=== PATIENT | female | born 1965 | race American Indian/Alaskan Native ===

== ENCOUNTER 2020-02-17 03:28 | Emergency (ER) | payer OTHER ==
--- NOTE | 2020-02-17 03:55 | Emergency Department Report ---
<NATASHA TODD - Last Filed: 02/17/20 05:48> ED Seizure HPI - General Chief Complaint: Hypoglycemia Stated Complaint: hypoglycemia Time Seen by Provider: 02/17/20 03:40 Source: EMS Mode of arrival: Stretcher Limitations: Other - History of Present Illness Initial Comments: Patient is a 54-year-old F [place] female with past medical history of colon cancer who is on chemotherapy as well as diabetes and hypertension who is pre senting status post a hypoglycemic episode. Family via phone state that the patient was fine earlier today and did go to chemotherapy. Patient was found by lying on the ground poorly responsive family also cannot tell me how long the patient was hypoglycemic. - Related Data Previous Rx's Medication Instructions Recorded Last Taken Type Hydrocodone Bit/Acetaminophen 1 - 2 each PO Q4-6H PRN #20 tablet 09/15/13 Unknown Rx [Lortab 5-500 Tablet] Ibuprofen [Motrin 800 MG tab] 800 mg PO TID PRN #20 tablet 09/15/13 Unknown Rx amLODIPine 10 mg PO DAILY #30 tab 02/17/20 Unknown Rx Allergies Allergy/AdvReac Type Severity Reaction Status Date / Time No Known Allergies Allergy Unverified 09/15/13 09:05 ED Review of Systems Comment: Unobtainable due to pts medical conditions ED Past Medical Hx - Past Medical History Hx Hypertension: Yes Hx Diabetes: Yes - Surgical History Additional Surgical History: Bilateral tubal ligation - Social History Smoking Status: Never Smoker Substance Use Type: None - Medications Home Medications: Home Medications Medication Instructions Recorded Confirmed Last Taken Type Hydrocodone Bit/Acetaminophen 1 - 2 each PO Q4-6H PRN #20 tablet 09/15/13 Unknown Rx [Lortab 5-500 Tablet] Ibuprofen [Motrin 800 MG tab] 800 mg PO TID PRN #20 tablet 09/15/13 Unknown Rx amLODIPine 10 mg PO DAILY #30 tab 02/17/20 Unknown Rx ED Physical Exam - General Limitations: Other General appearance: alert, in no apparent distress, other (Patient lying on her side resting. When I attempted to roll the patient over she stared at me with a angry expression but would not speak. Patient also noted to kick in strike out at nursing staff.) - Head Head exam: Present: atraumatic, normocephalic - Eye Eye exam: Present: normal appearance - ENT ENT exam: Present: mucous membranes moist - Neck Neck exam: Present: normal inspection - Respiratory Respiratory exam: Present: normal lung sounds bilaterally. Absent: respiratory distress, wheezes, rales - Cardiovascular Cardiovascular Exam: Present: regular rate, normal rhythm, normal heart sounds. Absent: systolic murmur, diastolic murmur, rubs, gallop - GI/Abdominal GI/Abdominal exam: Present: soft, tenderness, normal bowel sounds. Absent: distended - Extremities Exam Extremities exam: Present: normal inspection - Back Exam Back exam: Present: normal inspection - Neurological Exam Neurological exam: Present: alert, altered - Psychiatric Psychiatric exam: Present: normal affect, normal mood - Skin Skin exam: Present: warm, dry, intact, normal color. Absent: rash ED Course - Reevaluation(s) Reevaluation #1: 02/17/20 05:49 Patient is continued to be combative with nursing staff. Patient be given Geodon so that we can collect laboratory studies and properly evaluate her ED Disposition Clinical Impression: UTI (urinary tract infection), Hypoglycemia, Hypothermia, Colon cancer, Status post chemotherapy Disposition: - OP ADMIT IP TO THIS HOSP Condition: Stable Prescriptions: amLODIPine 10 mg PO DAILY #30 tab Referrals: PRIMARY CARE, [Primary Care Provider] - 3-5 Days <BARRINGTON MONTEIRO - Last Filed: 02/18/20 07:21> ED Seizure HPI - History of Present Illness Initial Comments: Patient states she takes Lantus 40 units at bedtime and then takes a short acting insulin with meals based on sliding scale dosing. Last dose of Lantus was 40 units at bedtime. Patient states she ate appropriate last night. Patient did not oversleep but was found hypoglycemic and this morning. Patient currently complains of mild frontal headache and otherwise is back to normal mental status alert and oriented x3 without complaints ED Review of Systems ROS: Stated complaint: hypoglycemia Other details as noted in HPI ED Course Vital Signs 02/17/20 02/17/20 02/17/20 03:38 03:43 03:46 Temperature 98.0 F Pulse Rate 76 73 70 Respiratory 14 11 L Rate Blood Pressure 157/82 Blood Pressure 157/82 [Right] O2 Sat by Pulse 99 100 100 Oximetry 02/17/20 02/17/20 02/17/20 03:56 04:00 05:43 Temperature 98 F Pulse Rate 73 73 88 Respiratory 14 12 12 Rate Blood Pressure 157/82 157/82 157/82 Blood Pressure [Right] O2 Sat by Pulse 100 100 100 Oximetry 02/17/20 02/17/20 02/17/20 05:46 06:00 07:00 Temperature Pulse Rate 84 79 70 Respiratory 13 20 8 L Rate Blood Pressure 151/85 151/85 178/103 Blood Pressure [Right] O2 Sat by Pulse 99 100 99 Oximetry 02/17/20 02/17/20 02/17/20 08:00 09:00 09:30 Temperature 92.1 F L Pulse Rate 76 Respiratory 11 L Rate Blood Pressure 163/84 180/95 Blood Pressure [Right] O2 Sat by Pulse 100 100 Oximetry 02/17/20 02/17/20 02/17/20 09:32 10:00 11:00 Temperature 92.1 F L Pulse Rate 91 H 92 H Respiratory 14 13 Rate Blood Pressure 179/72 173/93 Blood Pressure [Right] O2 Sat by Pulse 99 100 Oximetry 02/17/20 02/17/20 02/17/20 12:00 13:00 14:00 Temperature Pulse Rate 97 H 85 87 Respiratory 12 14 11 L Rate Blood Pressure 163/90 196/94 196/94 Blood Pressure [Right] O2 Sat by Pulse 100 100 100 Oximetry 02/17/20 02/17/20 02/17/20 15:00 15:57 17:18 Temperature 98.2 F Pulse Rate 83 91 H Respiratory 16 Rate Blood Pressure 173/94 184/89 Blood Pressure [Right] O2 Sat by Pulse 100 Oximetry 02/17/20 18:20 Temperature Pulse Rate 87 Respiratory 30 H Rate Blood Pressure Blood Pressure 164/87 [Right] O2 Sat by Pulse 98 Oximetry - Reevaluation(s) Reevaluation #1: 02/17/20 08:15 pt alert at this time nurse reports oral temp of 90F (rectal temp requested) IVF ordered due to elevated bun/cr however baseline cri noted as per med record awaiting urine collection ED Medical Decision Making - Lab Data Result diagrams: 02/17/20 05:35 02/17/20 05:35 - Medical Decision Making Patient with episode of hypoglycemia and unresponsiveness this a.m. Then patient developed agitation and combativeness and required Geodon. At time of my reevaluate patient was at baseline mental status confirmed by daughter at the bedside. Urine appears to be infected. Rocephin ordered. Blood cultures, lactic acid, venous pH ordered to rule out sepsis although no signs of tachycardia, hypotension, or leukocytosis at this time. Active warming initiated in ED. Patient is a cancer patient with recent chemotherapy. hospitalist informed for admission pt was evaluated by and ultimately discharged by the hospitalist Dr Franklin. Critical care attestation.: If time is entered above; I have spent that time in minutes in the direct care of this critically ill patient, excluding procedure time. ED Disposition Is pt being admited?: Yes Time of Disposition: 11:27 (Dr Franklin/hosp)
--- NOTE | 2020-02-17 04:36 | Cat Scan Report ---
CT head/brain wo con INDICATION: altered mental state. TECHNIQUE: All CT scans at this location are performed using the following dose modulation technique: Automated exposure control. CONTRAST: None. COMPARISON: None available. FINDINGS: The ventricular system is appropriate in size and configuration without midline shift. Nega tive for mass, stroke or hemorrhage. Imaged portions of the paranasal sinuses are clear. IMPRESSION: Negative for intracranial cyst hemorrhage or stroke. Signer Name: Edgardo Khan MD Signed: 02/17/2020 4:31 AM Workstation Name: [id number]
[2020-02-17] MEDS ORDERED: ZIPRASIDONE MESYLATE 20 MG VIAL IM ONE (04:37)
[2020-02-17] MEDS ORDERED: WATER FOR INJ Sterile (PF) 10 ML ONE (05:14)
[2020-02-17 06:45] LABS: Basophils # (Auto) 0.1 K/mm3 (0.0-0.1); Basophils % (Auto) 0.8 % (0.0-1.8); Eosinophils % (Auto) 0.2 % (0.0-4.3); Hematocrit 35.3 % (30.3-42.9); Hemoglobin 11.1 gm/dl (10.1-14.3); Lymphocytes # (Auto) 1.7 K/mm3 (1.2-5.4); Mean Corpuscular HGB Conc 32 % (30-34); Mean Corpuscular Volume 83 fl (79-97); Monocytes # (Auto) 0.3 K/mm3 (0.0-0.8); Monocytes % (Auto) 3.8 % (0.0-7.3); Platelet Count 272 K/mm3 (140-440); Red Blood Count 4.24 M/mm3 (3.65-5.03); Red Cell Distribution Width 14.4 % (13.2-15.2)
[2020-02-17 06:49] LABS: Calcium 9.9 mg/dL (8.4-10.2)
[2020-02-17] MEDS ORDERED: SODIUM CHLORIDE 0.9% 1000 ML 1,000 ML IV ONE ×2 (06:53→12:00)
[2020-02-17 09:43] LABS: Bacteria,Urine 2+ /HPF (Negative); Bilirubin,Urine NEG (Negative); Blood,Urine LG (Negative); Color,Urine Yellow (Yellow); Urobilinogen,Urine < 2.0 mg/dL (<2.0)
[2020-02-17 09:44] LABS: RBC,Urine > 182.0 /HPF (0.0-6.0)
[2020-02-17] MEDS ORDERED: cefTRIAXone/NS 1 GM/50 ML 1 GM/50 ML BAG IV ONE (10:03)
[2020-02-17 15:21] LABS: Free T4 (Free Thyroxine) 1.09 ng/dL (0.76-1.46)
[2020-02-17] MEDS ORDERED: hydrALAZINE 20 MG/1 ML INJ IV ONE (16:31)
[2020-02-17 18:22] VITALS: BP 164/87
== END 2020-02-17 18:30 | disposition admitted as inpatient to this hospital (09) ==
LOC: ED 03:28
DX: E11.649 Type 2 diabetes mellitus with hypoglycemia without coma (principal); C18.9 Malignant neoplasm of colon, unspecified; T68.XXXA Hypothermia, initial encounter; N39.0 Urinary tract infection, site not specified; I10 Essential (primary) hypertension; Z79.899 Other long term (current) drug therapy; Z98.51 Tubal ligation status
CPT/HCPCS: 36415; 70450; 80048; 81001; 82140; 82805; 82962; 84439; 84443; 85025; 87040; 87086; 96361; 96365; 96375; 99284; J0360; J0696; J3486; J7030